=== PATIENT | male | born 1970 | race Caucasian/White ===

== ENCOUNTER → 2018-03-19 13:52 | Outpatient (CLI) | payer MEDICARE, BC ==
[2014-06-03 08:49] VITALS: BMI 37.7
[~2018-03-19 13:52] MED LIST: DESERYL100 MG PO; FLUTICASONE PRO16 GM NS; GLUCOPHAGE500 MG PO; HYDROCODONE-APA1 TAB PO; PRILOSEC20 MG PO; STOOL SOFTENER240 MG PO; VALIUM5 MG PO
== END | disposition home or self-care (01) ==
LOC: D.RAD 13:52
DX: M25.512 Pain in left shoulder (principal)

== ENCOUNTER 2018-05-12 07:55 | Day surgery (SDC) | payer MEDICARE, BC ==
[2018-05-09 13:08] LABS: HEMATOCRIT 42.5 % (42.0-54.0); HEMOGLOBIN 14.5 g/dL (13.5-17.5); MCH 27.8 pg (26.0-34.0); MCHC 34.1 g/dL (31.0-37.0); MCV 81.6 fL (80.0-100.0); MEAN PLATELET VOLUME 9.4 fL (7.4-10.4); RBC 5.21 10x6/uL (4.20-6.10); RDW 15.1 % (11.5-14.5)
[2018-05-09 13:20] LABS: CALC OSMOLALITY 278 mosm/kg (275-300); CALCIUM 8.8 mg/dL (8.5-10.1); CARBON DIOXIDE 25.6 mmol/L (21.0-32.0); CHLORIDE - SERUM 105 mmol/L (98-107); GLUCOSE 133 mg/dL (74-106); POTASSIUM - SERUM 3.9 mmol/L (3.5-5.1); SODIUM 140 mmol/L (136-145); UREA NITROGEN 7 mg/dL (7-18); eGFR NON AFRICAN AMERICAN 86 mL/min (90-120)
[~2018-05-12] VITALS: Ht 180.3 cm; Wt 131.5 kg
--- NOTE | ~2018-05-12 | OP ---
PATIENT NAME: Tram MATHUR MEDICAL RECORD: [id number] LOCATION:[facility] ADMISSION DATE: SURGEON: MATTHEW DANIELLE MD DATE OF OPERATION: 05/12/2018 PREOPERATIVE DIAGNOSIS: Left shoulder impingement syndrome with biceps tendinitis, possible rotator cuff tear. POSTOPERATIVE DIAGNOSIS: Left shoulder impingement syndrome with biceps tendinitis. PROCEDURES: 1. Arthroscopic biceps tenotomy. 2. Arthroscopic distal clavicle excision done through separate incision - 1 cm. 3. Arthroscopic subacromial decompression with acromioplasty and bursectomy. SURGEON: Matthew Danielle MD ANESTHESIA: General. INTRAOPERATIVE COMPLICATIONS: None. SUMMARY OF PATHOLOGIC FINDINGS: Extreme biceps tendinitis warranting tenotomy as well as impingement syndrome and acromioclavicular arthritis. OPERATIVE SUMMARY IN DETAIL: After obtaining the appropriate preoperative orthopedic surgery consents as well as anesthetic consultation, evaluation, and clearance, the patient was brought to the operating room and placed on the operating table in supine position. After general laryngeal mask was administered, the patient was placed in the right lateral decubitus position. All pressure points well padded to include down leg peroneal pad as well as axillary roll. The patient was held firmly to the operating table using vacuum pack suction system. Left upper extremity and shoulder were prepped and draped in routine sterile fashion. The arm was held in the Arthrex traction boom at 30 degrees of forward flexion, 30 degrees of abduction, 10 pounds of traction laterally. Arthroscopy was established in the glenohumeral joint from the posterior portal. The anterior portal was established at anterior safe interval. Diagnostic arthroscopy did reveal the above findings. [place] tissue ablation system was utilized to release the biceps tendon at the bicipital labral junction. Attention then turned to the subacromial space. While on subacromial space, accessory lateral portal was created, through which surface tissue ablation system was utilized to denude the undersurface of the acromion of all soft tissue elements. A 5-0 barrel bur was used from acromioplasty at the level of acromioclavicular joint, anterior arthroscopic portal was then created for distal clavicle excision, 1 cm distal clavicle was excised with a little degree of difficulty. All bursa was then removed anteriorly, laterally, posteriorly, and superiorly. Having completed this, arthroscopy portals were closed in routine interrupted fashion using 4-0 Prolene. Sterile dressings were applied. The patient was awakened and taken to the recovery room in stable condition. OPERATIVE REPORT [id number] Tram MATHUR All final needle and sponge counts were correct. TRANSINT:[id number] Voice Confirmation ID: [id number] DOCUMENT ID: [id number] LOLIS SHEN, MATTHEW SOLO at 1418 CC: [id number] DICTATION DATE: 05/19/181413 READINESS PARAPROFESSIONAL: 05/19/18 [id number] [facility] 05/12/18 [id number] [place] [address]
[~2018-05-12 07:55] MED LIST changes: +CYCLOBENZAPRINE10 MG PO; +GLYBURIDE5 M1 PO; +NEURONTIN 300300 MG PO; +ZESTRIL10 MG PO
[2018-05-12 09:06] VITALS: Ht 180.3 cm; Wt 131.5 kg
[2018-05-12] MEDS ORDERED: OXYCODONE-APAP1 TAB PO (11:16)
== END 2018-05-12 12:55 | disposition home or self-care (01) ==
LOC: D.OPS 07:55 → D.PAN 10:15 → D.OPS 10:45
PROVIDERS: Anesthesiology
DX: M75.42 Impingement syndrome of left shoulder (principal); M75.22 Bicipital tendinitis, left shoulder; Z01.812 Encounter for preprocedural laboratory examination